=== PATIENT | male | born 1995 | race Hispanic/Latino ===

== ENCOUNTER 2021-08-10 16:50 | Emergency (ER) | payer SELFPAY ==
[2021-08-10] MEDS ORDERED: Boostrix 0.5 ML (Tdap) VIAL ONE (18:31)
[2021-08-10] MEDS ORDERED: Lidocaine 1% PF 5 ML VIAL ONE (18:49)
== END 2021-08-10 20:04 | disposition home or self-care (01) ==
LOC: ERS 16:50
DX: S91.115A Laceration without foreign body of left lesser toe(s) without damage to nail, initial encounter (principal); Z23 Encounter for immunization; W26.8XXA Contact with other sharp object(s), not elsewhere classified, initial encounter
CPT/HCPCS: 12001; 90471; 90715